=== PATIENT | female | born 1990 | race Caucasian/White ===

== ENCOUNTER 2019-06-24 15:47 | Emergency (ER) | payer BC, SELFPAY ==
[2019-06-24 15:49] VITALS: BP 123/72; PULSE 120; RESP 18; TEMP 36.7; O2SAT 100
[2019-06-24 18:52] LABS: Basophils Percent Auto 0.7 % (0.2-1.2); Eosinophils Absolute Auto 0.2 K/mm3 (0-0.3); Eosinophils Percent Auto 2.7 % (0-4.4); Hematocrit 39.6 % (37.0-47.0); Hemoglobin 13.4 g/dL (12.0-15.0); Immature Granulocyte Absolute 0.01 K/mm3 (0.00-0.031); Immature Granulocyte Percent A 0.2 % (0-0.5); Lymphocytes Absolute Auto 1.94 K/mm3 (0.9-3.2); Lymphocytes Percent Auto 33.1 % (18.3-44.2); Mean Corpuscular HGB Conc 33.8 g/dl (32-36); Mean Corpuscular Hemoglobin 28.5 pg (26-34); Mean Corpuscular Volume 84.1 fl (80-100); Mean Platelet Volume 10.3 fl (7.4-10.4); Monocytes Absolute Auto 0.4 K/mm3 (0.1-0.6); Neutrophils Absolute Auto 3.3 K/mm3 (1.3-6.7); Neutrophils Percent Auto 56.3 % (45.5-73.1); Platelet Count Result 284 k/mm3 (150-375); Red Blood Count 4.71 M/mm3 (4.2-5.4); Red Cell Distribution Width 12.3 % (11.5-14.5); White Blood Count 5.9 K/mm3 (4.5-10.0)
[2019-06-24 18:57] LABS: Add Urine Microscopic? YES; Appearance Urine Clear (Clear); Bacteria Urine 1+ /hpf; Bilirubin Urine Negative (Negative); Blood Urine Negative (Negative); Color Urine Yellow (Yellow); Glucose Urine UA Negative (Negative); Ketones Urine 1+ mg/dL (Negative); Leukocyte Esterase Ur Negative LEU/UL (Negative); Mucus Urine Heavy /lpf; Nitrate Urine Negative (Negative); Protein Urine 1+ mg/dL (Negative); RBC Urine 0-2 /hpf (0-2); Specific Grav Ur 1.027 (1.001-1.035); Squamous Epithelial Cell Urine Rare /hpf (Few); WBC Urine 0-3 /hpf
[2019-06-24 19:21] LABS: Beta HCG Quantitative < 2.39 mIU/ML
--- NOTE | 2019-06-24 19:40 | ED.PREGNANCY ---
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 Reports she took a test since she was late for her period. Reports it was positive and she had a tubal ligation 5 years ago. Otherwise has no complaints. Denies fever, abdominal pain, pelvic cramping, vaginal bleeding, or dysuria. <GIAN Red Last Filed: 06/24/19 19:52> Related Data Home medications: Home Medications Medication Instructions Recorded Confirmed No Home Medications 06/24/19 06/24/19 <Carlita Ackerman PA-C - Last Filed: 06/24/19 19:52> Allergies/Adverse reactions: Allergies Allergy/AdvReac Type Severity Reaction Status Date / Time tramadol Allergy Dizziness Verified 06/24/19 15:53 <GIAN Red Last Filed: 06/24/19 19:52> Review of Systems Review of Systems: Narrative: CONSTITUTIONAL: Denies fever GASTROINTESTINAL: Denies abdominal pain, nausea, vomiting GENITOURINARY: Denies dysuria or hematuria. <GIAN Red Last Filed: 06/24/19 19:52> All systems reviewed & are unremarkable except as noted in HPI and below <GIAN Red Last Filed: 06/24/19 19:52> [facility] Surgical History Surgical History: Surgical History (Updated 06/24/19 @ 19:42 by Carlita Ackerman PA-C) History of gastric bypass History of tubal ligation <Carlita Ackerman PA-C - Last Filed: 06/24/19 19:52> Social History Social History: Social History Gender identity (if verbalized by the patient): Female <Carlita Ackerman PA-C - Last Filed: 06/24/19 19:52> Exam Narrative: Exam Narrative: GENERAL: Well-appearing, well-nourished, and in no acute distress. HEAD: Normocephalic, atraumatic. EYES: EOMI. EXTREMITIES: Normal range of motion. No edema. SKIN: Warm, dry, no rash. NEURO: No focal deficits. Alert and oriented x3. PSYCH: Normal mood and affect <Carlita Ackerman PA-C - Last Filed: 06/24/19 19:52> Course Vital Signs Vital signs: Vital Signs Temperature 98.0 F 06/24/19 15:49 Pulse Rate 120 H 06/24/19 15:49 Respiratory Rate 18 06/24/19 15:49 Blood Pressure 123/72 06/24/19 15:49 Pulse Oximetry 100 06/24/19 15:49 Temperature 98.0 F 06/24/19 15:49 Pulse Rate 120 H 06/24/19 15:49 Respiratory Rate 18 06/24/19 15:49 Blood Pressure 123/72 06/24/19 15:49 Pulse Oximetry 100 06/24/19 15:49 <Carlita Ackerman PA-C - Last Filed: 06/24/19 19:52> Vital Signs Temperature 98.0 F 06/24/19 15:49 Pulse Rate 120 H 06/24/19 15:49 Respiratory Rate 18 06/24/19 15:49 Blood Pressure 123/72 06/24/19 15:49 Pulse Oximetry 100 06/24/19 15:49 Temperature 98.0 F 06/24/19 15:49 Pulse Rate 120 H 06/24/19 15:49 Respiratory Rate 18 06/24/19 15:49 Blood Pressure 123/72 06/24/19 15:49 Pulse Oximetry 100 06/24/19 15:49 <Anabella Beverly MD - Last Filed: 06/24/19 19:53> MDM - OB/Uterine Contractions MDM Narrative Medical decision making narrative: Patient presents the emergency department for positive home test today. Reports history of tubal ligation. Patient otherwise has no complaints. Her urine and serum beta hCG are negative. Patient was updated on case findings. Suspect false positive test at home. 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 Patient was given hayley
== END 2019-06-24 20:00 | disposition home or self-care (01) ==
PROVIDERS: Physician Assistant; Emergency Provider Emergency Medicine
DX: Z32.02 Encounter for pregnancy test, result negative (principal); Z98.84 Bariatric surgery status; Z98.51 Tubal ligation status
CPT/HCPCS: 36415; 81001; 81025; 84702; 85025; 85461; 99284

== ENCOUNTER 2023-12-26 16:09 | Emergency (ER) | payer BC, SELFPAY ==
--- NOTE | ~2023-12-26 | XR_ITS ---
EXAMINATION: XR chest 2V DATE: 12/26/2023 16:44 INDICATION: Chest pain TECHNIQUE: PA and lateral views of the chest were obtained. COMPARISON: None FINDINGS: The lungs are clear with no focal airspace opacities, pulmonary edema, pleural effusion or pneumothor ax. The cardiomediastinal silhouette is normal. Mild cervicothoracic levoscoliosis and thoracic dextr oscoliosis with mild spondylosis. IMPRESSION: 1. No acute cardiopulmonary disease. Reviewed, dictated and finalized at location B. [facility]
[2023-12-26 16:10] VITALS: BP 146/83; PULSE 118; RESP 20; TEMP 36.6; O2SAT 100
--- NOTE | 2023-12-26 16:10 | ED_ITS ---
HPI - SOB/Dyspnea General Chief Complaint: Shortness of Breath/Dyspnea <Carlita Ackerman PA-C - Last Filed: 12/27/23 11:07> Stated Complaint: sob <Carlita Ackerman PA-C - Last Filed: 12/27/23 11:07> Time Seen by Provider: 12/26/23 16:10 <Carlita Ackerman PA-C - Last Filed: 12/27/23 11:07> Focused HPI: This is a 33 year old female that presents to the ER for shortness of breath that started yesterday. Reports chest pain. Reports pain all over her body. Denies fever, cough, lower extremity edema. GENERAL: Well-appearing, well-nourished, and in no acute distress. HEAD: Normocephalic, atraumatic. CHEST: Clear to auscultation. ?No respiratory distress. HEART: Regular rate and rhythm.? NEURO: ?Alert and oriented x3. Patient screened in triage and initial orders placed.? ?Additional care and disposition to be based upon?diagnostic testing and treatment. <Carlita Ackerman PA-C - Last Filed: 12/27/23 11:07> History of Present Illness HPI Narrative: Agree with HPI. Patient reports chronic shortness of breath. Has been seen by PCP and recommended to go to pulmonology but she has not. She is supposed to get an MRI for her back today due to chronic back pain as well as scoliosis and disc herniation. She unfortunately missed that appointment because she felt too much pain and did not want to get out of bed. She has no fevers or chills. Patient reports she has had some positive autoimmune labs that they are still working up. <Justin Bowles MD - Last Filed: 12/26/23 21:00> Related Data Home Medications: Home Medications Medication Instructions Recorded Confirmed No Home Medications 06/24/19 06/24/19 <Carlita Ackerman PA-C - Last Filed: 12/27/23 11:07> Allergies/Adverse Reactions: Allergies Allergy/AdvReac Type Severity Reaction Status Date / Time tramadol Allergy Dizziness Verified 12/26/23 16:16 <Carlita Ackerman PA-C - Last Filed: 12/27/23 11:07> Review of Systems Review of Systems: All systems reviewed & are unremarkable except as noted in HPI and below <Justin Bowles MD - Last Filed: 12/26/23 21:00> Constitutional: Constitutional: Reports no additional constitutional complaints <Justin Bowles MD - Last Filed: 12/26/23 21:00> ENT: Reports system reviewed and no additional complaints, except as documented <Justin Bowles MD - Last Filed: 12/26/23 21:00> Cardiovascular: Cardiovascular: Reports no additional cardiovascular complaints and Denies chest pain <Justin Bowles MD - Last Filed: 12/26/23 21:00> Respiratory: Respiratory: Denies cough, Reports dyspnea and Denies wheezing <Justin Bowles MD - Last Filed: 12/26/23 21:00> Musculoskeletal: Musculoskeletal: Reports back pain, Denies arthralgias and Denies joint swelling <Justin Bowles MD - Last Filed: 12/26/23 21:00> [facility] Surgical History Surgical History: Surgical History (Updated 06/24/19 @ 19:42 by Carlita Ackerman PA-C) History of gastric bypass History of tubal ligation <Carlita Ackerman PA-C - Last Filed: 12/27/23 11:07> Social History Social History: Social History Gender identity (if verbalized by the patient): Female <Carlita Ackerman PA-C - Last Filed: 12/27/23 11:07> Exam Narrative: GENERAL: Frail-appearing, well-nourished, and in no acute distress. HEAD: Normocephalic, atraumatic. ENT: Mucous membranes moist. CHEST: Clear to auscultation. No respiratory distress. HEART: tachycardic and regular. Normal peripheral pulses. ABDOMEN: Soft, nontender, nondistended. EXTREMITIES: Normal range of motion. No edema. SKIN: Warm, dry, no rash. NEURO: Alert and oriented x3. PSYCH: Normal mood and affect. <Justin Bowles MD - Last Filed: 12/26/23 21:00> Course Course Emergency Course: Discussed lab and imaging results. The 89% on room air was not an accurate reading. Discussed lab and imaging findings with patient. White blood cell count normal. D-dimer within normal limits. Troponin negative. X-ray without infiltrate. She became upset because she wanted her chronic back pain addressed and not the shortness of breath that she initially reported. Discussed chronic back pain is related to her scoliosis is recommend she continue to keep her appointments, unfortunately she missed her MRI today. I did order Toradol to treat her pain but when the nurse went to the room to provide the medication patient already walked out without therapy <Carlita Ackerman PA-C - Last Filed: 12/27/23 11:07> Discussed lab and imaging results. The 89% on room air was not an accur ate reading. Discussed lab and imaging findings with patient. White blood cell count normal. D-dimer within normal limits. Troponin negative. X-ray without infiltrate. She became upset because she wanted her chronic back pain addressed and not the shortness of breath that she initially reported. Discussed chronic back pain is related to her scoliosis is recommend she continue to keep her ap pointments, unfortunately she missed her MRI today. I did order Toradol to treat her pain but when the nurse went to the room to provide the medication patient already walked out without therapy degrees and. <Justin Bowles MD - Last Filed: 12/26/23 21:00> Vital Signs Vital signs: Vital Signs Temperature 97.9 F 12/26/23 16:10 Pulse Rate 118 H 12/26/23 16:10 Respiratory Rate 20 12/26/23 16:10 Blood Pressure 146/83 H 12/26/23 16:10 Pulse Oximetry 100 12/26/23 16:10 Oxygen Delivery Room Air 12/26/23 16:10 Temperature 97.9 F 12/26/23 16:10 Pulse Rate 118 H 12/26/23 16:10 Respiratory Rate 20 12/26/23 16:10 Blood Pressure 146/83 H 12/26/23 16:10 Pulse Oximetry 89 L 12/26/23 18:44 Oxygen Delivery Room Air 12/26/23 18:44 <Carlita Ackerman PA-C - Last Filed: 12/27/23 11:07> Vital Signs Temperature 97.9 F 12/26/23 16:10 Pulse Rate 118 H 12/26/23 16:10 Respiratory Rate 20 12/26/23 16:10 Blood Pressure 146/83 H 12/26/23 16:10 Pulse Oximetry 100 12/26/23 16:10 Oxygen Delivery Room Air 12/26/23 16:10 Temperature 97.9 F 12/26/23 16:10 Pulse Rate 118 H 12/26/23 16:10 Respiratory Rate 20 12/26/23 16:10 Blood Pressure 146/83 H 12/26/23 16:10 Pulse Oximetry 89 L 12/26/23 18:44 Oxygen Delivery Room Air 12/26/23 18:44 <Justin Bowles MD - Last Filed: 12/26/23 21:00> MDM - SOB/Dyspnea Lab Data Result diagrams: 12/26/23 16:29 12/26/23 16:29 <Carlita Ackerman PA-C - Last Filed: 12/27/23 11:07> Labs: Lab Results 12/26/23 12/26/23 Range/Units 16:29 20:06 WBC 6.2 (4.5-10.0) K/mm3 RBC 4.77 (4.2-5.4) M/mm3 Hgb 13.7 (12.0-15.0) g/dL Hct 39.7 (37.0-47.0) % MCV 83.2 (80-100) fl MCH 28.7 (26-34) pg MCHC 34.5 (32-36) g/dl RDW 12.6 (11.5-14.5) % Plt Count 366 (150-375) k/mm3 MPV 9.6 (7.4-10.4) fl Immature Gran % (Auto) 0.2 (0-0.5) % Neut % (Auto) 71.6 (45.5-73.1) % Lymph % (Auto) 22.1 (18.3-44.2) % Owsley % (Auto) 5.2 (2.6-8.5) % Eos % (Auto) 0.2 (0-4.4) % Baso % (Auto) 0.7 (0.2-1.2) % Lymph # (Auto) 1.36 (0.9-3.2) K/mm3 Owsley # (Auto) 0.3 (0.1-0.6) K/mm3 Eos # (Auto) 0.0 (0-0.3) K/mm3 Baso # (Auto) 0.0 (0.0-0.1) K/mm3 Abs Immat Gran (auto) 0.01 (0.00-0.031) K/mm3 Absolute Neuts (auto) 4.4 (1.3-6.7) K/mm3 Absolute Nucleated RBC 0.000 (0.0-0.012) K/mm3 Nucleated RBC % 0.0 (0.0-0.2) % PT 15.0 H (11.1-14.7) Seconds INR 1.2 APTT 27.5 (22.3-36.8) Seconds D-Dimer 0.28 (<0.48) ug/mL Sodium 137 (137-145) mmol/L Potassium 4.0 (3.4-5.0) mmol/L Chloride 100 (98-107) mmol/L Carbon Dioxide 28 (22-30) mmol/L Anion Gap 9 (4-12) mmol/L BUN 10 (7-17) mg/dL Creatinine 0.60 L (0.7-1.0) mg/dL Estim Creat Clear Calc 84 ml/min Estimated GFR > 60 (59 - ) Glucose 115 H (65-110) mg/dL Calcium 9.3 (8.4-10.2) mg/dL Total Bilirubin 0.6 (0.2-1.3) mg/dL AST 30 (14-36) U/L ALT 23 (6-35) U/L Alkaline Phosphatase 61 (38-126) U/L Troponin I < 0.012 < 0.012 (0.000-0.034) ng/mL Total Protein 9.0 H (6.3-8.2) g/dL Albumin 4.6 (3.5-5.1) g/dL Lipase 59 (23-300) U/L <Carlita Ackerman PA-C - Last Filed: 12/27/23 11:07> Lab Results 12/26/23 12/26/23 Range/Units 16:29 20:06 WBC 6.2 (4.5-10.0) K/mm3 RBC 4.77 (4.2-5.4) M/mm3 Hgb 13.7 (12.0-15.0) g/dL Hct 39.7 (37.0-47.0) % MCV 83.2 (80-100) fl MCH 28.7 (26-34) pg MCHC 34.5 (32-36) g/dl RDW 12.6 (11.5-14.5) % Plt Count 366 (150-375) k/mm3 MPV 9.6 (7.4-10.4) fl Immature Gran % (Auto) 0.2 (0-0.5) % Neut % (Auto) 71.6 (45.5-73.1) % Lymph % (Auto) 22.1 (18.3-44.2) % Owsley % (Auto) 5.2 (2.6-8.5) % Eos % (Auto) 0.2 (0-4.4) % Baso % (Auto) 0.7 (0.2-1.2) % Lymph # (Auto) 1.36 (0.9-3.2) K/mm3 Owsley # (Auto) 0.3 (0.1-0.6) K/mm3 Eos # (Auto) 0.0 (0-0.3) K/mm3 Baso # (Auto) 0.0 (0.0-0.1) K/mm3 Abs Immat Gran (auto) 0.01 (0.00-0.031) K/mm3 Absolute Neuts (auto) 4.4 (1.3-6.7) K/mm3 Absolute Nucleated RBC 0.000 (0.0-0.012) K/mm3 Nucleated RBC % 0.0 (0.0-0.2) % PT 15.0 H (11.1-14.7) Seconds INR 1.2 APTT 27.5 (22.3-36.8) Seconds D-Dimer 0.28 (<0.48) ug/mL Sodium 137 (137-145) mmol/L Potassium 4.0 (3.4-5.0) mmol/L Chloride 100 (98-107) mmol/L Carbon Dioxide 28 (22-30) mmol/L Anion Gap 9 (4-12) mmol/L BUN 10 (7-17) mg/dL Creatinine 0.60 L (0.7-1.0) mg/dL Estim Creat Clear Calc 84 ml/min Estimated GFR > 60 (59 - ) Glucose 115 H (65-110) mg/dL Calcium 9.3 (8.4-10.2) mg/dL Total Bilirubin 0.6 (0.2-1.3) mg/dL AST 30 (14-36) U/L ALT 23 (6-35) U/L Alkaline Phosphatase 61 (38-126) U/L Troponin I < 0.012 < 0.012 (0.000-0.034) ng/mL Total Protein 9.0 H (6.3-8.2) g/dL Albumin 4.6 (3.5-5.1) g/dL Lipase 59 (23-300) U/L <Justin Bowles MD - Last Filed: 12/26/23 21:00> Imaging Data Radiologist's impression: ITS Impressions Chest X-Ray 12/26/23 16:44 IMPRESSION: 1. No acute cardiopulmonary disease. <Justin Bowles MD - Last Filed: 12/26/23 21:00> ECG Data EKG #1: ECG completion date: 12/26/23 <Justin Bowles MD - Last Filed: 12/26/23 21:00> ECG completion time: 16:32 <Justin Bowles MD - Last Filed: 12/26/23 21:00> EKG Interpretation: normal rate (101), sinus rhythm, no ectopy, normal QRS, normal QT and NL axis <Justin Bowles MD - Last Filed: 12/26/23 21:00> Critical Care Time Critical Care Time Critical Care Time: No <Carlita Ackerman PA-C - Last Filed: 12/27/23 11:07> Discharge Plan Discharge Clinical Impression: Back pain, chronic, Dyspnea <Carlita Ackerman PA-C - Last Filed: 12/27/23 11:07> Patient Disposition: Elopement After Seen by Prov <Carlita Ackerman PA-C - Last Filed: 12/27/23 11:07> Condition: Stable <Carlita Ackerman PA-C - Last Filed: 12/27/23 11:07> Instructions: Dyspnea (ED), Chronic Back Pain (DC) <Carlita Ackerman PA-C - Last Filed: 12/27/23 11:07> Prescriptions: No Action No Home Medications <Carlita Ackerman PA-C - Last Filed: 12/27/23 11:07> Follow-up/Referrals: PHYSICIAN,MUSIC PASTOR [Primary Care Provider] - <Carlita Ackerman PA-C - Last Filed: 12/27/23 11:07>
--- NOTE | 2023-12-26 16:17 | ECG_ITS ---
Test Date: 2023-12-26 16:32:15 Measurements Intervals [place] Rate: 101 P: -2 MS: 130 QRS: 81 QRSD: 83 T: -56 QT: 354 QTc: 459 Interpretive Statements SINUS TACHYCARDIA DELAYED PRECORDIAL R/S TRANSITION BORDERLINE ST-T WAVE ABNORMALITY- INFERIOR LEADS BASELINE ARTIFACT- I, II, III, AVR, AVL, AVF, V1-V6 BORDERLINE ECG No previous ECG available for comparison Electronically Signed On 12-26-2023 18:30:28 CANDY DECORATOR by Enoch Dietrich D.O.
[2023-12-26 16:39] LABS: Basophils Percent Auto 0.7 % (0.2-1.2); Eosinophils Percent Auto 0.2 % (0-4.4); Hematocrit 39.7 % (37.0-47.0); Hemoglobin 13.7 g/dL (12.0-15.0); Immature Granulocyte Absolute 0.01 K/mm3 (0.00-0.031); Immature Granulocyte Percent A 0.2 % (0-0.5); Lymphocytes Absolute Auto 1.36 K/mm3 (0.9-3.2); Lymphocytes Percent Auto 22.1 % (18.3-44.2); Mean Corpuscular HGB Conc 34.5 g/dl (32-36); Mean Corpuscular Hemoglobin 28.7 pg (26-34); Mean Corpuscular Volume 83.2 fl (80-100); Mean Platelet Volume 9.6 fl (7.4-10.4); Monocytes Absolute Auto 0.3 K/mm3 (0.1-0.6); Monocytes Percent Auto 5.2 % (2.6-8.5); Neutrophils Absolute Auto 4.4 K/mm3 (1.3-6.7); Neutrophils Percent Auto 71.6 % (45.5-73.1); Platelet Count Result 366 k/mm3 (150-375); Red Blood Count 4.77 M/mm3 (4.2-5.4); Red Cell Distribution Width 12.6 % (11.5-14.5); White Blood Count 6.2 K/mm3 (4.5-10.0)
[2023-12-26 16:47] LABS: Alanine Aminotransferase 23 U/L (6-35); Albumin Level 4.6 g/dL (3.5-5.1); Alkaline Phosphatase 61 U/L (38-126); Anion Gap 9 mmol/L (4-12); Aspartate Amino Transferase 30 U/L (14-36); Bilirubin,Total 0.6 mg/dL (0.2-1.3); Blood Urea Nitrogen 10 mg/dL (7-17); Calcium 9.3 mg/dL (8.4-10.2); Carbon Dioxide 28 mmol/L (22-30); Chloride 100 mmol/L (98-107); Estimated CRCL calculation 84 ml/min; Estimated Glomerular Filt Rate > 60; Glucose 115 mg/dL (65-110); Lipase 59 U/L (23-300); Sodium 137 mmol/L (137-145)
[2023-12-26 16:51] LABS: INR 1.2; Partial Thromboplastin Time 27.5 Seconds (22.3-36.8)
[2023-12-26 16:55] LABS: D Dimer 0.28 ug/mL (<0.48)
[2023-12-26 17:03] LABS: Troponin I < 0.012 ng/mL (0.000-0.034)
[2023-12-26 18:44] VITALS: O2SAT 89
[2023-12-26 20:49] LABS: Troponin I < 0.012 ng/mL (0.000-0.034)
--- NOTE | 2023-12-26 23:08 | PC.NURSE ---
2030: Pt states she is having 9/10 pain. MD Bowles notified. MD Bowles puts in orders for toradol. This RN went into pt room at this time to give meds and pt and significant other are not seen in room. This RN looked around ED and could not find them. RN went and spoke with , zinc furnace charger, and church secretary Rose states pt called out that they are wanting to be discharged and go to another facility. This RN could not find Pt anywhere assuming pt and spouse had decidd to leve without speaking with anyone. Pt had an IV in and we are unaware if she had taken it out before she left. community living specialist notified and is speaking with PD.
--- NOTE | 2023-12-26 23:14 | PC.NURSE ---
ON 12/26/2023 AT 2013 [place] [facility] CALLED AT [phone], WHEN SITUATION EXPLAINED AND PT'S ADDRESS GIVEN THIS NURSE WAS RE-DIRECTED TO [facility]'s DEPT. THIS RN THEN CALLED [facility] AT [phone], THEY STATED THAT THEY WOULD SEND AN OFFICER OUT TO THE ADDRESS LISTED IN CHART AND GET BACK WITH US REGARDING THE IV STATUS OF THIS ELOPED PT.
--- NOTE | 2023-12-27 05:35 | PC.NURSE ---
THIS RN CALLED [facility]'s DEPARTMENT BACK TO INQUIRE ABOUT WEATHER THEY WERE ABLE TO MAKE CONTACT WITH THIS PT. [facility] DISPATCH SAID THAT THE OFFICER WAS JUST GETTING THERE AT THIS TIME.
== END 2023-12-26 23:16 | disposition left against medical advice (07) ==
PROVIDERS: Physician Assistant; Emergency Provider Emergency Medicine
DX: M54.9 Dorsalgia, unspecified (principal); R06.00 Dyspnea, unspecified; G89.29 Other chronic pain; Z98.84 Bariatric surgery status
CPT/HCPCS: 36415; 71046; 80053; 83690; 84484; 85025; 85380; 85610; 85730; 93005; 99284